=== PATIENT | female | born 1965 | race Caucasian/White ===

== ENCOUNTER 2020-01-02 00:44 | Emergency (ER) | payer OTHER ==
[2020-01-02] MEDS ORDERED: Sodium Chloride 0.9% 2.5 ML Syringe FLUSH PRN (01:26)
[2020-01-02] MEDS ORDERED: Morphine 10 MG/ML Syringe IVPUSH ONE (01:26)
[2020-01-02] MEDS ORDERED: Sodium Chloride 0.9% 1,000 ML IV ONE (01:26)
[2020-01-02] MEDS ORDERED: Sodium Chloride 0.9% 10 ML Syringe FLUSH PRN (01:26)
[2020-01-02] MEDS ORDERED: Promethazine 25 MG/ML SDV IM ONE (01:26)
[2020-01-02] MEDS ORDERED: Morphine 10 MG/ML Syringe IM ONE (02:10)
--- NOTE | 2020-01-02 02:39 | EDM.PDOC ---
ED HPI GENERAL MEDICAL PROBLEM - General Chief Complaint: General Stated Complaint: HEADACHES Time Seen by Provider: 01/02/20 02:18 Source of Information: Reports: Patient History Limitations: Reports: No Limitations - History of Present Illness INITIAL COMMENTS - FREE TEXT/NARRATIVE: HISTORY AND PHYSICAL: History of present illness: This is a 54-year-old female who is visiting family in [facility] who presents the ER today secondary to migraine headache. Patient reports that she has had a aneurysm in the past that required clipping. She reports that her headache today is completely different than the headache that she has had when she is had her aneurysm. Patient reports that her headache today is identical in every way and manner to her usual typical migraines. Patient reports that she gets migraine headaches approximately once a month and she feels that this headache today is typical to her migraines. Patient reports that the pain is identical in location, strength, and characteristics. Patient reports that she usually gets morphine 8 mg and Phenergan 12.5 mg to assist her with her nausea and her headaches in the past. Patient denies any recent fevers, shakes, chills, vomiting, diarrhea, dysuria, frequency, urgency, chest pain, shortness of breath, double vision, blurred vision, weakness to her upper or lower extremities, slurring in her speech. Patient denies any history of hypertension, diabetes, liver, lung, kidney problems. Patient has any tobacco alcohol or drugs. Patient surgeries related to her aneurysm as well as a thyroidectomy. Patient lives with and is currently visiting children in [place]. Review of systems: As per history of present illness and below otherwise all systems reviewed and negative. Past medical history: As per history of present illness and as reviewed below otherwise noncontributory. Surgical history: As per history of present illness and as reviewed below otherwise noncontributory. Social history: No reported history of drug or alcohol abuse. Family history: As per history of present illness and as reviewed below otherwise noncontributory. Physical exam: Constitutional: Patient is oriented to person, place, and time. Appears well- developed and well-nourished. No distress. HEENT: Moist mucous membranes Head: Normocephalic and atraumatic Eyes: Right eye exhibits no discharge. Left eye exhibits no discharge. No scleral icterus Neck: Normal range of motion. No tracheal deviation present. Cardiovascular: Normal rate and regular rhythm. Pulmonary: Effort normal, no respiratory distress. Abdominal: No distention Musculoskeletal: Normal range of motion Neurologic: Alert and oriented to person, place and time. Skin: [place], warm and dry. Psychiatric: Normal mood and affect. Behavior is normal. Judgment and thought content normal. Nursing note and vital signs have been reviewed Neuro: Awake, alert, oriented. Cranial nerves II through XII unremarkable. Cerebellum unremarkable. Motor and sensory unremarkable throughout. Exam nonfocal. Neck supple, no nuchal rigidity, no photophobia, no Kernig's sign or Brudzinski sign, patient does not present with signs or symptoms of be consistent with meningitis. Pupils equally round reactive light extraocular motions intact. No papilledema appreciated Diagnostics: Patient reports that her symptoms are identical to her prior migraines and would prefer no imaging. Therapeutics: Patient given morphine 8 mg IM and Phenergan 12.5 mg IM. Impression: Migraine headache: Patient reports that this is identical in every way to her prior migraine headaches. Patient reports that she is confident that this is not anything other than her migraines and is just requesting assistance with her symptoms and would prefer no other studies at this time. Patient understands limitations with no studies but she feels very confident given her long history of migraines at this is a migraine headache and not a aneurysm. Plan: Patient was reevaluated by me at 2:39 AM and reports that her headache is almost completely gone. She is requesting to be discharged home so she can go home and sleep in bed. Reassessment at the time of disposition demonstrates that the patient is in no acute distress. The patient has remained stable throughout the entire ED visit and is without objective evidence for acute process requiring urgent intervention or hospitalization. The patient is stable for discharge, counseling is provided as documented above, discussed symptomatic treatment and specific conditions for return. I have spoken with the patient/caregive and discussed todays findings, in addition to providing specific details for the plan of care. Questions are answered and there is agreement with the plan. Headache Pain Score (Numeric/FACES): 7 - Related Data Allergies Allergy/AdvReac Type Severity Reaction Status Date / Time ketorolac [From Toradol] Allergy Difficulty Verified 01/02/20 01:23 Breathing metoclopramide [From Reglan] Allergy Difficulty Verified 01/02/20 01:23 Breathing ondansetron [From Zofran] Allergy Difficulty Verified 06/16/20 01:23 Breathing prochlorperazine Allergy Difficulty Verified 01/02/20 01:23 [From Compazine] Breathing Home Meds: Home Meds ALPRAZolam [Xanax] 1 mg PO TID 01/02/20 [History] Aspirin 81 mg PO DAILY 01/02/20 [History] FLUoxetine [PROzac] 40 mg PO DAILY 01/02/20 [History] Levothyroxine Sodium [Synthroid] 175 mcg PO DAILY 01/02/20 [History] Omeprazole 40 mg PO DAILY 01/02/20 [History] Topiramate [Topamax] 100 mg PO DAILY 01/02/20 [History] amLODIPine [Norvasc] 2.5 mg PO DAILY 01/02/20 [History] atorvaSTATin [Lipitor] 10 mg PO DAILY 01/02/20 [History] Past Medical History Cardiovascular History: Reports: Other (See Below) Other Cardiovascular History: Broken Heart Syndrome Neurological History: Reports: Cerebral Aneurysms Endocrine/Metabolic History: Reports: Other (See Below) Other Endocrine/Metabolic History: Hashimotos Disease - Past Surgical History GI Surgical History: Reports: Cholecystectomy Female Surgical History: Reports: Hysterectomy Endocrine Surgical History: Reports: Thyroidectomy Other Neurological Surgeries/Procedures: craniotomy, 2 Clamps for aneurysms Social & Family History - Tobacco Use Smoking Status *Q: Current Every Day Smoker Years of Tobacco use: 20 Packs/Tins Daily: 0.2 Second Hand Smoke Exposure: No - Recreational Drug Use Recreational Drug Use: No ED ROS GENERAL - Review of Systems Review Of Systems: Comprehensive ROS is negative, except as noted in HPI. ED EXAM, GENERAL - Physical Exam Exam: See Below Course - Vital Signs Last Recorded V/S: Last Vital Signs Temp 97.9 F 01/02/20 01:14 Pulse 91 01/02/20 01:14 Resp 16 01/02/20 01:14 BP 151/68 H 01/02/20 01:14 Pulse Ox 96 01/02/20 01:14 - Orders/Labs/Meds Orders: Active Orders 24 hr Category Date Time Status Sodium Chloride 0.9% [Saline Flush] Med 01/02/20 01:26 Active 10 ml FLUSH ASDIRECTED PRN Sodium Chloride 0.9% [Saline Flush] Med 01/02/20 01:26 Active 2.5 ml FLUSH ASDIRECTED PRN Saline Lock Insert [OM.PC] Stat Oth 01/02/20 01:26 Ordered Medication Orders Sodium Chloride (Saline Flush) 10 ml FLUSH ASDIRECTED PRN PRN Reason: Keep Vein Open Sodium Chloride (Saline Flush) 2.5 ml FLUSH ASDIRECTED PRN PRN Reason: Keep Vein Open Meds: Medications Generic Name Dose Route Start Last Admin Trade Name Freq PRN Reason Stop Dose Admin Sodium Chloride 10 ml 01/02/20 01:26 Saline Flush FLUSH ASDIRECTED PRN Keep Vein Open Sodium Chloride 2.5 ml 01/02/20 01:26 Saline Flush FLUSH ASDIRECTED PRN Keep Vein Open Discontinued Medications Generic Name Dose Route Start Last Admin Trade Name Freq PRN Reason Stop Dose Admin Sodium Chloride 1,000 mls @ 999 mls/hr 01/02/20 01:26 01/02/20 02:11 Normal Saline IV 01/02/20 02:26 Not Given .Bolus ONE Morphine Sulfate 8 mg 01/02/20 01:26 01/02/20 02:10 Morphine IVPUSH 01/02/20 01:27 Not Given ONETIME ONE Morphine Sulfate 8 mg 01/02/20 02:10 01/02/20 02:12 Morphine IM 01/02/20 02:11 8 mg ONETIME ONE Administration Promethazine HCl 25 mg 01/02/20 01:26 01/02/20 02:11 Phenergan IM 01/02/20 01:27 25 mg ONETIME ONE Administration Departure - Departure Time of Disposition: 02:39 Disposition: Home, Self-Care 01 Condition: Good Clinical Impression: Migraine headache - Discharge Information *PRESCRIPTION DRUG MONITORING PROGRAM REVIEWED*: Not Applicable *COPY OF PRESCRIPTION DRUG MONITORING REPORT IN PATIENT BERNARDINO: Not Applicable Instructions: Recurrent Migraine Headache, [id number] Referrals: PCP,Not In Area [Primary Care Provider] - Additional Instructions: The following information is given to patients seen in the emergency department who are being discharged to home. This information is to outline your options for follow-up care. We provide all patients seen in our emergency department with a follow-up referral. The need for follow-up, as well as the timing and circumstances, are variable depending upon the specifics of your emergency department visit. If you don't have a primary care physician on staff, we will provide you with a referral. We always advise you to contact your personal physician following an emergency department visit to inform them of the circumstance of the visit and for follow-up with them and/or the need for any referrals to a consulting specialist. The emergency department will also refer you to a specialist when appropriate. This referral assures that you have the opportunity for follow-up care with a specialist. All of these measure are taken in an effort to provide you with optimal care, which includes your follow-up. Under all circumstances we always encourage you to contact your private physician who remains a resource for coordinating your care. When calling for follow-up care, please make the office aware that this follow-up is from your recent emergency room visit. If for any reason you are refused follow-up, please contact the [facility] at and asked to speak to the emergency department charge nurse. Sepsis Event Note (ED) - Evaluation Sepsis Screening Result: No Definite Risk - Focused Exam Vital Signs: Vital Signs Temp Pulse Resp BP Pulse Ox 01/02/20 01:14 97.9 F 91 16 151/68 H 96 - My Orders Last 24 Hours: My Active Orders 01/02/20 01:26 Sodium Chloride 0.9% [Saline Flush] 10 ml FLUSH ASDIRECTED PRN Sodium Chloride 0.9% [Saline Flush] 2.5 ml FLUSH ASDIRECTED PRN Saline Lock Insert [OM.PC] Stat - Assessment/Plan Last 24 Hours: My Active Orders 01/02/20 01:26 Sodium Chloride 0.9% [Saline Flush] 10 ml FLUSH ASDIRECTED PRN Sodium Chloride 0.9% [Saline Flush] 2.5 ml FLUSH ASDIRECTED PRN Saline Lock Insert [OM.PC] Stat
== END 2020-01-02 03:00 | disposition home or self-care (01) ==
LOC: MW.ED 00:44
DX: G43.909 Migraine, unspecified, not intractable, without status migrainosus (principal); F17.210 Nicotine dependence, cigarettes, uncomplicated; Z88.8 Allergy status to other drugs, medicaments and biological substances; Z79.82 Long term (current) use of aspirin; Z79.899 Other long term (current) drug therapy
CPT/HCPCS: 96372; 99283; J2270; J2550